=== PATIENT | male | born 1960 | race African-American/Black ===

== ENCOUNTER → 2017-08-24 | Day surgery (SDC) | payer OTHER ==
[~2017-08-24] MED LIST: LIDOCAINE 2% 100 MG/5 ML SYRINGE.; PROPOFOL 20 ML IV; PROPOFOL 40 ML IV
[2017-08-24] MEDS: IV RINGERS,LACTATED 1000ML 1,000 ML IV (07:23)
== END ==
LOC: SURG 06:35
DX: D12.3 Benign neoplasm of transverse colon (principal); D37.4 Neoplasm of uncertain behavior of colon; K64.8 Other hemorrhoids; E78.5 Hyperlipidemia, unspecified; I10 Essential (primary) hypertension; K21.9 Gastro-esophageal reflux disease without esophagitis; N40.0 Benign prostatic hyperplasia without lower urinary tract symptoms; K57.30 Diverticulosis of large intestine without perforation or abscess without bleeding; B19.20 Unspecified viral hepatitis C without hepatic coma; Z79.82 Long term (current) use of aspirin; Z90.49 Acquired absence of other specified parts of digestive tract; Z79.899 Other long term (current) drug therapy
CPT/HCPCS: 45380; J2704